=== PATIENT | female | born 1950 | race Caucasian/White ===

== ENCOUNTER 2018-10-20 05:47 | Day surgery (SDC) | payer MEDICARE ==
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
[2018-10-19 15:58] VITALS: BMI 40.0
[2018-10-20] MEDS ORDERED: Ketorolac Tromethamine 30 MG/ML VIAL ONE (06:25)
[2018-10-20] MEDS ORDERED: CEFAZOLIN 2 GM/50 ML BAG ONE (06:25)
[2018-10-20] MEDS ORDERED: Fentanyl 100 MCG/2 ML VIAL ONE ×4 (06:34→10:34)
[2018-10-20 06:46] LABS: #Eosinphils 0.2 thou/uL (0.0-0.7); #Lymphocytes 1.1 thou/uL (1.20-3.40); #Monocytes 0.6 thou/uL (0.11-0.59); #Neutrophils 2.5 thou/uL (1.40-6.50); %Basophils 1.1 % (0.0-1.0); %Eosinophils 5.1 % (0.0-10.0); %Lymphocytes 25.9 % (21.0-51.0); %Monocytes 12.3 % (0.0-10.0); %Neutrophils 55.7 % (42.0-75.0); Hemoglobin 12.5 g/dL (12.0-16.0); Mean Corpuscular HGB CONC 31.7 g/dL (32.0-36.0); Mean Corpuscular Hemoglobin 25.9 pg (27.0-31.0); Mean Corpuscular Volume 81.7 fL (78.0-98.0); Mean Platelet Volume 7.8 fL (7.4-10.4); Platelet Count 266 thou/uL (130-400); RBC Distribution Width 15.6 % (11.5-14.5); Red Blood Cell (RBC) Count 4.83 mill/uL (4.20-5.40); White Blood Cell (WBC) Count 4.4 thou/uL (4.8-10.8)
[2018-10-20 06:50] LABS: INR-International Normal Ratio 1.2; Prothrombin Time 15.3 SEC (12.0-14.7)
[2018-10-20] MEDS ORDERED: Bupivacaine/Epinephrine 0.25% 30 ML VIAL ONE (06:56)
[2018-10-20 06:58] LABS: Anion Gap 12 mmol/L (10-20); BUN (Urea Nitrogen) 12 mg/dL (9.8-20.1); Calc. Creatinine Clearance 117 mL/min (70-130); Calcium 10.5 mg/dL (7.8-10.44); Carbon Dioxide 23 mmol/L (23-31); Chloride 109 mmol/L (98-107); Estimated GFR-MDRD 81; Glucose 109 mg/dL (80-115); Potassium 3.6 mmol/L (3.5-5.1); Sodium 140 mmol/L (136-145)
--- NOTE | 2018-10-20 10:51 | HP ---
ADDENDUM: Dictation #[id number]. Dictated today, but original dictation number coded 10/10/2018. I personally discussed with Dr. Szymanski on the patient's cardiac status. The patient in August 2016 had a normal cardiac catheterization, left ventricular ejection fraction of 55% to 70%. The patient had an echocardiogram on August [address] Szymanski's office, that was normal. The patient is cleared for surgery without further cardiac evaluation. The patient is listed to be on Coumadin, but she is not. This has been stopped. Job ID: [id number]
[2018-10-20] MEDS ORDERED: HYDROcodone/Acetaminophen 5/325 mg Tablet ONE (11:51)
[2018-10-20] MEDS ORDERED: Lidocaine 1% PF 5 ML VIAL ONE (12:59)
[2018-10-20] MEDS ORDERED: Ondansetron PF 4 MG/2 ML Vial ONE (12:59)
[2018-10-20] MEDS ORDERED: Glycopyrrolate 0.2 MG/ML 5 ML SYRINGE ONE (12:59)
[2018-10-20] MEDS ORDERED: PROPOFOL 200 MG/20 ML VIAL ONE (12:59)
[2018-10-20] MEDS ORDERED: Dexamethasone 20 MG/5 ML VIAL ONE (12:59)
[2018-10-20] MEDS ORDERED: ePHEDrine/0.9% NaCl/PF SYRINGE 50 mg/10 ml ONE (12:59)
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
--- NOTE | 2018-10-20 19:03 | EKG ---
Test Reason : PREOP Blood Pressure : / mmHG Vent. Rate : 065 BPM Atrial Rate : 065 BPM P-R Int : 160 ms QRS Dur : 088 ms QT Int : 432 ms P-R-T Axes : 056 012 031 degrees QTc Int : 449 ms Normal sinus rhythm Normal ECG No previous ECGs available Confirmed by Thomas PARK ([id number]) on 10/20/2018 7:03:08 PM Referred By: ALLY Confirmed By:Thomas PARK
== END 2018-10-20 13:45 | disposition home or self-care (01) ==
LOC: SDC 05:47
PROVIDERS: ATTEND Specialist
PROC: 0WUF4JZ Supplement Abdominal Wall with Synthetic Substitute, Percutaneous Endoscopic Approach (ICD-10-PCS; principal; 2018-10-20)
DX: K43.2 Incisional hernia without obstruction or gangrene (principal); I10 Essential (primary) hypertension; E78.00 Pure hypercholesterolemia, unspecified; F32.9 Major depressive disorder, single episode, unspecified; Z86.718 Personal history of other venous thrombosis and embolism; Z79.01 Long term (current) use of anticoagulants; Z79.899 Other long term (current) drug therapy; Z90.710 Acquired absence of both cervix and uterus; Z98.890 Other specified postprocedural states
CPT/HCPCS: 49654; 80048; 85025; 85610; 93005; 96374; C1781; 36415; 93010; J0131; J1100; J1885; J2001; J2405; J2704; J3010

== ENCOUNTER 2018-10-27 09:17 | Emergency (ER) | payer MEDICARE ==
[2018-10-27 10:09] LABS: #Eosinphils 0.2 thou/uL (0.0-0.7); #Lymphocytes 1.2 thou/uL (1.20-3.40); #Monocytes 0.7 thou/uL (0.11-0.59); #Neutrophils 5.6 thou/uL (1.40-6.50); %Eosinophils 3.1 % (0.0-10.0); %Lymphocytes 15.3 % (21.0-51.0); %Monocytes 9.4 % (0.0-10.0); %Neutrophils 72.2 % (42.0-75.0); Hemoglobin 12.8 g/dL (12.0-16.0); Mean Corpuscular HGB CONC 32.5 g/dL (32.0-36.0); Mean Platelet Volume 7.8 fL (7.4-10.4); Platelet Count 258 thou/uL (130-400); RBC Distribution Width 15.9 % (11.5-14.5); Red Blood Cell (RBC) Count 4.76 mill/uL (4.20-5.40); White Blood Cell (WBC) Count 7.8 thou/uL (4.8-10.8)
[2018-10-27 10:30] LABS: ALT (SGPT) 14 U/L (8-55); AST (SGOT) 13 U/L (5-34); Albumin 4.1 g/dL (3.4-4.8); Alkaline Phosphatase 85 U/L (40-150); Anion Gap 9 mmol/L (10-20); BUN (Urea Nitrogen) 13 mg/dL (9.8-20.1); Bilirubin, Total 0.9 mg/dL (0.2-1.2); Calc. Creatinine Clearance 0 mL/min (70-130); Calcium 10.7 mg/dL (7.8-10.44); Carbon Dioxide 25 mmol/L (23-31); Chloride 108 mmol/L (98-107); Estimated GFR-MDRD 78; Glucose 133 mg/dL (80-115); INR-International Normal Ratio 1.6; PTT 46.1 SEC (22.9-36.1); Potassium 3.3 mmol/L (3.5-5.1); Protein, Total 7.1 g/dL (6.0-8.3); Sodium 139 mmol/L (136-145)
--- NOTE | 2018-10-27 11:21 | ULT ---
ULTRASOUND WITH DOPPLER DUPLEX VENOUS LOWER EXTREMITY LEFT: Date: 10/27/18 HISTORY: 67-year-old female with left lower extremity pain. TECHNIQUE: Color flow Doppler, spectral waveform analysis of pulsed Doppler, and king-scale imaging with barbara les and augmentation, were used to evaluate the left common femoral, femoral, popliteal, posterior t ibial, and superficial femoral, veins; and the proximal portions of the profunda femoral and greater saphenous, veins. FINDINGS: There is normal compressibility, demonstration of blood flow by color Doppler and pulsed Doppler, and response to augmentation, in all interrogated veins. The entire greater saphenous vein, from the saphenofemoral junction, through the thigh, is expanded, noncompressible, and has no blood flow. The left lesser saphenous vein is also expanded with clot at the ankle, has diminished blood flow, and is noncompressible. In the superficial soft tissues of the left leg inferior to the knee, there are very tortuous, dilated, clot-filled varicosities which have some blood flow. IMPRESSION: 1. No deep vein thrombosis in the left lower extremity. 2. Positive for occlusive superficial venous thrombosis of the entire left greater saphenous vein an d left lesser saphenous vein. 3. Positive for superficial thrombophlebitis of varicosities of left leg. ivett[] POS: PAULINE
== END 2018-10-27 11:43 | disposition home or self-care (01) ==
LOC: ERS 09:17
DX: I80.02 Phlebitis and thrombophlebitis of superficial vessels of left lower extremity (principal); I10 Essential (primary) hypertension; Z79.899 Other long term (current) drug therapy
CPT/HCPCS: 36415; 80053; 85025; 85610; 85730

== ENCOUNTER 2019-02-15 08:25 | Outpatient (CLI) | payer MEDICARE ==
--- NOTE | 2019-02-23 09:21 | MMO ---
Bilateral MAMMO Bilat Screen [facility]. CLINICAL HISTORY: Patient is 68 years old and is seen for screening. VIEWS: The views performed were: bilateral craniocaudal with tomosynthesis and bilateral mediolateral oblique with tomosynthesis. FILMS COMPARED: The present examination has been compared to prior imaging studies performed at [facility] on 01/21/2015 and 02/23/2016, and at [facility] on 08/25/2005. MAMMOGRAM FINDINGS: There are scattered fibroglandular densities. Incomplete visualization of axillary tail regions on MLO views. Repeat MLO views recommended. IMPRESSION: FINDINGS IN BOTH BREASTS REQUIRE ADDITIONAL EVALUATION. TECHNICAL CALLBACK, PATIENT SHOULD RETURN FOR REPEAT IMAGES DESCRIBED ABOVE. PATIENT SHOULD NOT BE CHARGED FOR ADDITIONAL IMAGES. THE RESULTS OF THIS EXAM WERE SENT TO THE PATIENT. ACR BI-RADS Category 0 - Incomplete: Need additional imaging evaluation. [facility] will notify the patient of the need for additional imaging services. MAMMOGRAPHY NOTE: 1. A negative mammogram report should not delay a biopsy if a dominant of clinically suspicious mass is present. 2. Approximately 10% to 15% of breast cancers are not detected by mammography. 3. Adenosis and dense breasts may obscure an underlying neoplasm.
== END 2019-02-15 08:26 | disposition home or self-care (01) ==
LOC: BICMAMMO 08:25
PROVIDERS: ATTEND Physician Assistant
DX: Z12.31 Encounter for screening mammogram for malignant neoplasm of breast (principal)
CPT/HCPCS: 77063; 77067

== ENCOUNTER 2019-07-31 09:47 | Outpatient (CLI) | payer MEDICARE ==
--- NOTE | 2019-07-31 11:57 | RAD ---
2 VIEWS SKULL: Date: 07/31/19 INDICATION: MRI safety. Patient states she has right ear implant. FINDINGS/IMPRESSION: No radiopaque implant identified in either ear. No osseous or soft tissue abnormality apparent. POS: OFF
--- NOTE | 2019-07-31 12:22 | MRI ---
MRI BRAIN WITH AND WITHOUT CONTRAST: 07/31/2019 HISTORY: Left-sided sensorineural hearing loss. COMPARISON: None. TECHNIQUE: Multiplanar multisequence MR imaging of the brain obtained with and without contrast using internal a uditory canal protocol. FINDINGS: The diffusion weighted imaging demonstrates no evidence for acute infarction. The axial FLAIR imaging demonstrates multiple subcentimeter foci of scattered increased signal intens ity within the periventricular, deep and subcortical white matter, evidence of small vessel disease. Thin section T2 weighted imaging through the skull base demonstrate no abnormality at the level of th e cerebellopontine angle on either side. There is normal T2 signal intensity in the region of the internal auditory canal, cochlea, vestibule and semicircular canals bilaterally. The imaged paranasal sinuses and mastoid air cells demonstrate normal signal intensity. Arterial flow voids at the axial level of the skull base appear grossly unremarkable on the T2-weight ed imaging. Pre-contrast T1 weighted imaging through the skull base demonstrates no acute findings. There is a mass within the sella, measuring approximately 9-10 mm in craniocaudal dimension. It demo nstrates heterogeneous increased signal intensity on pre-contrast T1 weighted sequence and is heterogeneous on T2 with areas of internal T2 hypointensity. The post contrast imaging demonstrates no abnormal enhancement within the brain parenchyma. Thin section post contrast imaging through the skull base demonstrates no abnormal enhancement in the region of the internal auditory canal, cochlea, vestibule or semicircular canals on either side. IMPRESSION: 1. No focal abnormality noted on this examination to explain left-sided sensorineural hearing loss. 2. Sellar mass with pre-contrast T1 hyperintensity, suggesting proteinaceous material and/or hemorrh age. Recommend dedicated MRI using a pituitary mass protocol. Transcribed Date/Time: 07/31/2019 12:30 PM
== END 2019-07-31 09:48 | disposition home or self-care (01) ==
LOC: BICMRI 09:47
PROVIDERS: ATTEND Student in an Organized Health Care Education/Training Program
DX: H90.42 Sensorineural hearing loss, unilateral, left ear, with unrestricted hearing on the contralateral side (principal); G93.89 Other specified disorders of brain; R90.89 Other abnormal findings on diagnostic imaging of central nervous system
CPT/HCPCS: 70250; 70553; 82565

== ENCOUNTER 2019-08-13 18:32 | Emergency (ER) | payer MEDICARE ==
--- NOTE | 2019-08-13 18:55 | RAD ---
Radiograph left knee 4 views: DATE: 08/13/2019 HISTORY: 68-year-old female with acute traumatic left knee pain. FINDINGS: Small to moderate-sized suprapatellar joint effusion. No acute fracture identified. No dislocation. M oderate to severe DJD at medial compartment. Mild to moderate DJD at patellofemoral compartment. Minimal DJD at lateral compartment. Chondrocalcinosis at medial and lateral compartments. IMPRESSION: 1. Osteoarthrosis, most severe at the medial compartment. 2. Chondrocalcinosis suggestive of CPPD. 3. Joint effusion. 4. No acute fracture identified.
[2019-08-13] MEDS ORDERED: traMADol HCl 50 MG TAB ONE (19:45)
== END 2019-08-13 19:54 | disposition home or self-care (01) ==
LOC: ERS 18:32
DX: S80.02XA Contusion of left knee, initial encounter (principal); S50.312A Abrasion of left elbow, initial encounter; I10 Essential (primary) hypertension; Z79.82 Long term (current) use of aspirin; Z79.899 Other long term (current) drug therapy; W01.0XXA Fall on same level from slipping, tripping and stumbling without subsequent striking against object, initial encounter

== ENCOUNTER 2019-08-21 07:45 | Outpatient (CLI) | payer MEDICARE ==
[2019-08-21] MEDS ORDERED: Gadobenate Dimeglumine 529 MG/1 ML (20ML VIAL) ONE (10:09)
--- NOTE | 2019-08-21 11:26 | MRI ---
MRI BRAIN AND SELLA WITH AND WITHOUT CONTRAST: 08/21/2019 HISTORY: A 68-year-old female with an intrasellar mass found on IAC protocol brain MRI from 07/31/2019. FINDINGS: There is an intrasellar mass with intrinsic T1 hyperintensity, measuring approximately 10 x 9 x 10 mm , occupying the majority of the volume of the sella turcica. All of the subsequent post contrast imag es are degraded by significant patient motion. Because of the intrinsic T1 hyperintensity, it is diff icult to determine whether or not there is any enhancement associated with this. The majority of the volume of the mass is heterogeneously T2 hypointense, surrounding by a thin rim of T2 hyperintensity. There is minimal suprasellar protrusion. No contact with the optic chiasm. No invasion of the cavern ous sinuses. There are mild to moderate chronic ischemic white matter changes of the bilateral cerebr al hemispheres. No mass effect or midline shift. There is an old lacunar infarction involving the rig ht caudate head and a small adjacent portion of the anterior limb of the right internal capsule and t he right basal ganglia, with associated minimal dilation of the frontal horn of the right lateral jay tricle. IMPRESSION: 1. An approximately 1 cm T1-hyperintense and T2-hypointense mass filling the sella turcica. The diffe rential symptoms is Rathke's cleft cyst with proteinaceous contents versus small craniopharyngioma ve rsus small hemorrhagic pituitary macroadenoma. 2. Recommend thin slice non-contrast CT brain/sinuses with attention to the sella turcica, to evaluat e for the presence of calcifications, which would point the diagnosis to craniopharyngioma. 3. Also recommend serial follow-up sella protocol MRI's of the brain with and without contrast, begin lesa in six months. 4. Old lacunar infarction of the right corpus striatum. POS: CET
== END 2019-08-21 07:46 | disposition home or self-care (01) ==
LOC: BICMRI 07:45
PROVIDERS: ATTEND Student in an Organized Health Care Education/Training Program
DX: D35.2 Benign neoplasm of pituitary gland (principal); I25.2 Old myocardial infarction; E23.7 Disorder of pituitary gland, unspecified
CPT/HCPCS: 70553; A9577

== ENCOUNTER 2019-10-07 09:02 | Emergency (ER) | payer MEDICARE ==
[2019-10-07] MEDS ORDERED: Meclizine HCl 25 MG TAB ONE (10:04)
[2019-10-07] MEDS ORDERED: Acetaminophen 500 MG TAB ONE (10:04)
[2019-10-07] MEDS ORDERED: Ondansetron PF 4 MG/2 ML Vial ONE (10:04)
--- NOTE | 2019-10-07 10:20 | CT ---
Head CT without contrast 10/07/2019: Comparison: None HISTORY: Dizziness, fever, tremors TECHNIQUE: Axial CT imaging at 5 mm intervals from vertex through skull base without contrast FINDINGS: The visualized paranasal sinuses/mastoid air cells demonstrate no acute findings. No displa migel calvarial fracture. No intracranial hemorrhage, midline shift, mass effect, or ventricular enlargement. Foci of prior lacunar infarction noted in the periventricular white matter adjacent to t he frontal horn of the right lateral ventricle and in the region of the right caudate head. IMPRESSION: Chronic findings as detailed above. No intracranial hemorrhage.
[2019-10-07 10:37] LABS: INR-International Normal Ratio 1.9; PTT 42.7 SEC (22.9-36.1); Prothrombin Time 21.7 SEC (12.0-14.7)
[2019-10-07 10:37] LABS: Bacteria/HPF 4+ HPF (None Seen); Bilirubin Negative (Negative); Blood, Urine 1+ (Negative); Clarity Extra Turbid (Clear); Glucose, Urine (Dipstick) Normal (Negative); Leukocyte 500 Leu/uL (Negative); Nitrite Negative (Negative); Protein, Urine (Dipstick) 100 mg/dL (Neg-Trace); Urobilinogen 3 mg/dL (Less than 2); WBC/HPF Greater than 50 HPF (0-3)
--- NOTE | 2019-10-07 10:38 | RAD ---
EXAM: Portable chest PROVIDED CLINICAL HISTORY: Fever and dizziness COMPARISON: None FINDINGS: Cardiac and mediastinal silhouette is within normal limits. No focal consolidation, pleural fluid or pneumothorax evident. Vascular calcification is noted involving the aortic arch. IMPRESSION: No evidence for an acute cardiopulmonary process.
[2019-10-07 10:53] LABS: ALT (SGPT) 21 U/L (8-55); AST (SGOT) 25 U/L (5-34); Alkaline Phosphatase 90 U/L (40-110); Anion Gap 12 mmol/L (10-20); BUN (Urea Nitrogen) 13 mg/dL (9.8-20.1); Bilirubin, Total 1.4 mg/dL (0.2-1.2); Calc. Creatinine Clearance 0 mL/min (70-130); Calcium 10.5 mg/dL (7.8-10.44); Carbon Dioxide 23 mmol/L (23-31); Chloride 105 mmol/L (98-107); Estimated GFR-MDRD 69; Glucose 128 mg/dL (80-115); Lipase 5 U/L (8-78); Potassium 3.4 mmol/L (3.5-5.1); Sodium 137 mmol/L (136-145)
[2019-10-07 10:58] LABS: #Basophils 0.2 thou/uL (0.0-0.2); #Lymphocytes 0.4 thou/uL (1.20-3.40); #Monocytes 1.3 thou/uL (0.11-0.59); #Neutrophils 7.7 thou/uL (1.40-6.50); %Basophils 1.7 % (0.0-1.0); %Eosinophils 0.1 % (0.0-10.0); %Lymphocytes 4.1 % (21.0-51.0); %Monocytes 13.8 % (0.0-10.0); %Neutrophils 80.4 % (42.0-75.0); Hemoglobin 12.3 g/dL (12.0-16.0); MDiff Complete? YES; Mean Corpuscular Hemoglobin 26.9 pg (27.0-31.0); Mean Corpuscular Volume 81.5 fL (78.0-98.0); Mean Platelet Volume 8.7 fL (7.4-10.4); Platelet Count 177 thou/uL (130-400); Platelet Morphology Comment Appears Adequate; RBC Distribution Width 15.5 % (11.5-14.5); Red Blood Cell (RBC) Count 4.58 mill/uL (4.20-5.40); White Blood Cell (WBC) Count 9.6 thou/uL (4.8-10.8)
[2019-10-07] MEDS ORDERED: cefTRIAXone\\ROCEPHIN 2 GM VIAL ONE (11:35)
== END 2019-10-07 13:02 | disposition home or self-care (01) ==
LOC: ERS 09:02
DX: N10 Acute pyelonephritis (principal); R42 Dizziness and giddiness; I10 Essential (primary) hypertension; Z79.899 Other long term (current) drug therapy; Z79.01 Long term (current) use of anticoagulants; R11.2 Nausea with vomiting, unspecified
CPT/HCPCS: 36415; 70450; 71045; 80053; 81003; 81015; 83605; 83690; 83735; 84146; 84443; 84484; 85025; 85610; 85730; 87040; 87149; 87804; 93005; 94760; 96361; 96365; 96375; J0696; J2405; J8597

== ENCOUNTER 2019-10-25 09:36 | Outpatient (CLI) | payer MEDICARE ==
--- NOTE | 2019-10-25 11:28 | CT ---
INDICATION: Vertigo. Confusion. COMPARISON: Head CT 10/07/2019 FINDINGS: CTA OF THE HEAD WITH AND WITHOUT CONTRAST: NONCONTRAST CT OF BRAIN: Hemorrhage: None [place]/Infarction: No acute infarct. Remote insult involving the right lentiform nucleus and caudat e nucleus is redemonstrated Midline Shift: None. Hydrocephalus: None. Skull and Extracranial Soft tissues: Normal. POSTCONTRAST HEAD CT: No pathologic enhancement the brain parenchyma. CTA OF THE BRAIN: Right ICA: Appropriate enhancement and luminal diameter. Right MCA: Appropriate enhancement and luminal diameter. Right DARCY: Appropriate enhancement and luminal diameter ACOM: Patent. Left ICA: Appropriate enhancement and luminal diameter Left MCA: Appropriate enhancement and luminal diameter Left DARCY: Appropriate enhancement and luminal diameter PCOMs: Patent Vertebral arteries: Dominant right vertebral artery. Left vertebral artery appears to have PICA term ination. Basilar Artery: Basilar artery is patent. Basilar artery is solely supplied by the right vertebral a rtery public health service officer: Right SURVEILLANCE SYSTEMS ENGINEER has a origin and is patent. The left P1 segment is patent. Incidentals: None. IMPRESSION: 1. No hemodynamically significant stenosis, occlusion or aneurysmal formation.
== END 2019-10-25 09:37 | disposition home or self-care (01) ==
LOC: TBSIIMAG 09:36
PROVIDERS: ATTEND Neurological Surgery
DX: R42 Dizziness and giddiness (principal)
CPT/HCPCS: 70496

== ENCOUNTER 2020-08-05 13:19 | Outpatient (CLI) | payer MEDICARE ==
[~2020-08-05 13:19] MED LIST: Magnevist 469MG/ML 20 ML VIAL ONE
--- NOTE | 2020-08-05 15:03 | MRI ---
Exam: Brain MRI with and without contrast HISTORY: Previous abnormal finding in the sella. Possible Rathke's cleft cyst versus craniopharyngiom a versus pituitary adenoma with hemorrhage. COMPARISON: 08/31/2019. FINDINGS: Hemorrhage: No parenchymal hemorrhage or extra-axial hematoma. Calvarium: Appropriate T1 marrow signal intensity Midline brain parenchyma: Unremarkable Cerebrum:No parenchymal mass, mass effect or midline shift. Age-appropriate atrophy. Cortical king-wh ite white matter differentiation is preserved. T2 and FLAIR white matter hyperintensities due to chronic small vessel ischemic change. Ventricles: No evidence of hydrocephalus. Sinuses and mastoid air cells: Adequate aeration Diffusion: Central arterial flow is maintained. Absent restricted diffusion. Postcontrast images: No pathologic enhancement of the brain parenchyma. Pituitary MRI: There is intrinsic T1 hyperintensity involving a sellar mass. Currently, mass measures 0.9 x 1.1 cm x 1.1 cm. T2-weighted images demonstrate central hypointensity suggesting hemosiderin from previous hemorrhage. Postcontrast images do not demonstrate any significant enhancement. There i s anterior displacement of the pituitary stalk. No significant mass effect upon the optic chiasm or prechiasmatic optic nerve. No significant extension into either cavernous sinus/Meckel's cave. IMPRESSION: Redemonstration of a mass occupying the majority the sella. Mass has intrinsic T1 hyperintensity with out obvious enhancement on the postcontrast images. There is anterior displacement of the pituitary stalk which is still midline. Differential considerations include a complex Rathke's cleft cyst, pars intermedia cyst or possibly a cystic macroadenoma.
== END 2020-08-05 13:20 | disposition home or self-care (01) ==
LOC: BICMRI 13:19
PROVIDERS: ATTEND Physician Assistant
DX: R93.89 Abnormal findings on diagnostic imaging of other specified body structures (principal); E23.6 Other disorders of pituitary gland
CPT/HCPCS: 70553; 82565; A9579

== ENCOUNTER 2020-09-04 13:40 | Outpatient (CLI) | payer MEDICARE ==
--- NOTE | 2020-09-04 14:21 | MMO ---
Bilateral MAMMO Bilat Screen [facility]. CLINICAL HISTORY: Patient is 69 years old and is seen for screening. VIEWS: The views performed were: bilateral craniocaudal with tomosynthesis and bilateral mediolateral oblique with tomosynthesis. FILMS COMPARED: The present examination has been compared to prior imaging studies performed at [facility] on 01/21/2015 and 02/23/2016, at [facility] on 02/15/2019, and at [facility] on 08/25/2005. This study has been interpreted with the assistance of computer-aided detection. MAMMOGRAM FINDINGS: There are scattered fibroglandular densities. There are no suspicious masses, suspicious calcifications, or new areas of architectural distortion. IMPRESSION: THERE IS NO MAMMOGRAPHIC EVIDENCE OF MALIGNANCY. A ROUTINE FOLLOW-UP MAMMOGRAM IN 1 YEAR IS RECOMMENDED. THE RESULTS OF THIS EXAM WERE SENT TO THE PATIENT. ACR BI-RADS Category 1 - Negative MAMMOGRAPHY NOTE: 1. A negative mammogram report should not delay a biopsy if a dominant of clinically suspicious mass is present. 2. Approximately 10% to 15% of breast cancers are not detected by mammography. 3. Adenosis and dense breasts may obscure an underlying neoplasm. Reported by: CARRIE CARRASCO MD Electonically Signed: [id number]
== END 2020-09-04 13:41 | disposition home or self-care (01) ==
LOC: BICMAMMO 13:40
PROVIDERS: ATTEND Physician Assistant
DX: Z12.31 Encounter for screening mammogram for malignant neoplasm of breast (principal)
CPT/HCPCS: 77063; 77067

== ENCOUNTER 2020-09-12 12:31 | Observation (INO) | payer MEDICARE ==
[2020-09-12 12:53] LABS: #Eosinphils 0.2 thou/uL (0.0-0.7); #Lymphocytes 1.2 thou/uL (1.20-3.40); #Monocytes 0.9 thou/uL (0.11-0.59); #Neutrophils 3.4 thou/uL (1.40-6.50); %Basophils 0.5 % (0.0-1.0); %Lymphocytes 21.1 % (21.0-51.0); %Monocytes 14.9 % (0.0-10.0); %Neutrophils 59.5 % (42.0-75.0); Hemoglobin 13.4 g/dL (12.0-16.0); Mean Corpuscular HGB CONC 31.6 g/dL (32.0-36.0); Mean Corpuscular Hemoglobin 25.3 pg (27.0-31.0); Mean Corpuscular Volume 80.2 fL (78.0-98.0); Mean Platelet Volume 7.9 fL (7.4-10.4); Platelet Count 279 thou/uL (130-400); RBC Distribution Width 15.9 % (11.5-14.5); Red Blood Cell (RBC) Count 5.27 mill/uL (4.20-5.40); White Blood Cell (WBC) Count 5.8 thou/uL (4.8-10.8)
[2020-09-12 12:55] LABS: Prothrombin Time 26.8 sec (12.0-14.7)
[2020-09-12 12:56] LABS: PTT 56.4 sec (22.9-36.1)
[2020-09-12 12:57] LABS: INR-International Normal Ratio 2.4
[2020-09-12 13:22] LABS: ALT (SGPT) 16 U/L (8-55); AST (SGOT) 19 U/L (5-34); Albumin 4.2 g/dL (3.4-4.8); Alkaline Phosphatase 75 U/L (40-110); Anion Gap 13 mmol/L (10-20); BUN (Urea Nitrogen) 14 mg/dL (9.8-20.1); Bilirubin, Total 0.5 mg/dL (0.2-1.2); CK (CPK) 52 U/L (29-168); Calc. Creatinine Clearance 0 mL/min (70-130); Calcium 10.5 mg/dL (7.8-10.44); Carbon Dioxide 26 mmol/L (23-31); Chloride 106 mmol/L (98-107); Estimated GFR-MDRD 72; Globulin 2.8 g/dL (2.4-3.5); Glucose 102 mg/dL (80-115); Potassium 3.7 mmol/L (3.5-5.1); Sodium 141 mmol/L (136-145)
--- NOTE | 2020-09-12 13:23 | CT ---
CTA Angio Head W WO Con History: Stroke. Left-sided facial droop Comparison: CTA head and neck October 2019 Findings: CT angiogram of the head and neck performed after the intravenous administration of contras t. 3-D rendering provided. Lung apices are clear. Moderate degenerative changes lower cervical spine. No acute fracture. Mandible is intact. Normal location of the tip joints. The vertebral arteries are patent. Right vertebral artery is dominant. Right common carotid artery is patent. Slight internal carotid artery is patent. No hemodynamically s ignificant stenosis per NASCET criteria. Left common carotid artery is patent. The left internal carotid artery is patent. No hemodynamically significant stenosis per NASCET criteria. No oropharyngeal mass. [place] is patent without stenosis, thrombosis nor aneurysm formation. Impression: 1. Intact [place] without stenosis, thrombosis or aneurysm formation. 2. No hemodynamically significant stenosis internal carotid arteries per NASCET criteria. Transcribed Date/Time: 09/12/2020 2:42 PM
[2020-09-12] MEDS ORDERED: Acetaminophen 500 MG TAB ONE (14:25)
--- NOTE | 2020-09-12 14:38 | CT ---
CT BRAIN WITHOUT CONTRAST: 09/12/20 HISTORY: Level I stroke alert. Left sided facial and arm tingling and slurred speech. COMPARISON: 10/07/19. Old lacunar infarctions in the periventricular white matter adjacent to the frontal horn of the right lateral ventricle and in the region of the right caudate head are again seen. The ventricular size i s stable and the basilar cisterns patent. No evidence of acute infarct, hemorrhage, midline shift or abnormal extra-axial fluid collections are seen. The bony calvarium is intact. The visualized paranasal sinuses are well aerated. IMPRESSION: No CT evidence of acute intracranial process. Discussed over the telephone with ER physician, Dr. Carmelo Tovar at 12:48 p.m.
[2020-09-12] MEDS ORDERED: Iopamidol-370 76% 500 ML 1 ML ONE (15:08)
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
[2020-09-12] MEDS ORDERED: hydrALAZINE 20 MG/ML VIAL SLOW IVP PRN (16:42)
[2020-09-12 17:41] VITALS: BMI 38.5
[2020-09-12 17:58] LABS: Hemoglobin A1c 5.3 % (4.0-6.0)
[2020-09-12] MEDS ORDERED: Warfarin Sodium 7.5 MG TAB PO SCH (19:15)
[2020-09-12] MEDS: Atorvastatin Calcium 40 MG TAB PO SCH (21:08)
[2020-09-13 06:07] LABS: #Eosinphils 0.3 thou/uL (0.0-0.7); #Lymphocytes 1.4 thou/uL (1.20-3.40); #Monocytes 0.6 thou/uL (0.11-0.59); #Neutrophils 2.7 thou/uL (1.40-6.50); %Basophils 0.7 % (0.0-1.0); %Eosinophils 6.1 % (0.0-10.0); %Lymphocytes 27.5 % (21.0-51.0); %Monocytes 12.5 % (0.0-10.0); %Neutrophils 53.2 % (42.0-75.0); Hemoglobin 12.5 g/dL (12.0-16.0); Mean Corpuscular HGB CONC 32.1 g/dL (32.0-36.0); Mean Corpuscular Hemoglobin 25.7 pg (27.0-31.0); Mean Corpuscular Volume 80.2 fL (78.0-98.0); Mean Platelet Volume 8.4 fL (7.4-10.4); Platelet Count 260 thou/uL (130-400); RBC Distribution Width 15.8 % (11.5-14.5); Red Blood Cell (RBC) Count 4.87 mill/uL (4.20-5.40); White Blood Cell (WBC) Count 5.1 thou/uL (4.8-10.8)
[2020-09-13 06:10] LABS: INR-International Normal Ratio 2.5; Prothrombin Time 27.3 sec (12.0-14.7)
[2020-09-13 06:29] LABS: Anion Gap 11 mmol/L (10-20); BUN (Urea Nitrogen) 15 mg/dL (9.8-20.1); Calc. Creatinine Clearance 110 mL/min (70-130); Calcium 10.1 mg/dL (7.8-10.44); Carbon Dioxide 26 mmol/L (23-31); Cardiac Risk 3.5 (Less than 4.5); Chloride 109 mmol/L (98-107); Cholesterol 128 mg/dl (< 200 Desired); Estimated GFR-MDRD 80; Glucose 105 mg/dL (80-115); HDL Cholesterol 37 mg/dL (>60 Neg Risk); LDL Cholesterol, Calculated 65 mg/dL; Potassium 3.8 mmol/L (3.5-5.1); Sodium 142 mmol/L (136-145); Triglycerides 129 mg/dL (Less than 150)
[2020-09-13] MEDS: Levothyroxine Sodium 75 MCG TAB PO SCH (06:50)
[2020-09-13] MEDS: PARoxetine CR 12.5 MG TAB PO SCH (10:10)
--- NOTE | 2020-09-13 13:49 | PDOC.HOSPP ---
- Subjective Encounter Date: 09/13/20 Encounter Time: 07:20 Subjective: Seen for follow-up regarding facial numbness. She reports that she feels fine now. - Objective Vital Signs & Weight: Vital Signs (12 hours) Temp Pulse Resp BP Pulse Ox 09/13/20 11:20 98.1 F 63 18 143/63 H 95 09/13/20 07:14 98.2 F 65 20 135/67 95 09/13/20 04:27 98.2 F 70 16 138/59 L 93 L Weight Weight 210 lb 12.8 oz I&O: 09/12/20 09/13/20 09/14/20 06:59 06:59 05:59 Intake Total 240 Output Total 450 650 Balance -210 -650 Result Diagrams: 09/13/20 04:47 09/13/20 04:47 Additional Labs: Labs and MAR reviewed by me EKG Reviewed by me: Yes (Telemetry: NSR) Hospitalist ROS - Review of Systems Cardiovascular: denies: chest pain, palpitations, orthopnea, paroxysmal noc. dyspnea, edema, light headedness Neurological: reports: numbness. denies: weakness, incoordination, change in speech, confusion, seizures - Medication Medications: Active Medications Generic Name Dose Route Start Last Admin Trade Name Freq PRN Reason Stop Dose Admin Atorvastatin Calcium 80 mg 09/12/20 21:00 09/12/20 21:08 Atorvastatin Calcium 40 Mg Tab PO 80 mg HS COLTON Administration Levothyroxine Sodium 75 mcg 09/13/20 06:00 09/13/20 06:50 Levothyroxine Sodium 75 Mcg Tab PO 75 mcg 0600 COLTON Administration Paroxetine HCl 12.5 mg 09/13/20 09:00 09/13/20 10:10 Paroxetine Cr 12.5 Mg Tab PO 12.5 mg DAILY COLTON Administration - Exam General - other findings: Obese Eye: anicteric sclera ENT: no oropharyngeal lesions Neck: supple Heart: RRR Respiratory: CTAB, no ronchi Gastrointestinal: soft, non-tender Skin: no rashes Psychiatric: normal affect, normal behavior Hosp A/P - Plan -Assessment/plan Left facial numbness Improved. Stroke work-up in progress. Recurrent DVTs Patient is on warfarin, INR is therapeutic. Sellar mass For outpatient follow-up. Hypertension Stable. Hypothyroidism Continue home levothyroxine. Hyperlipidemia Continue atorvastatin 80 mg. Anxiety/depression Mild, stable. Mnire's disease Patient to follow-up with ENT as outpatient.
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
--- NOTE | 2020-09-13 14:41 | PDOC.EEG ---
Neurology EEG Report - Report Report: EEG was performed using 24 channel [employer] video digital EEG machine with 24 disc electrodes. This was an extended 2-hour 5 minutes of inpatient video EEG recording. Digital analysis of the EEG was done for Kashif and seizure detection which revealed no abnormalities. Background: The posterior background rhythm is 10 to 12 Hz the background rhythm attenuates with eye opening and enhances with eye closure. Photic stimulation: Bioccipital symmetric driving response is observed. Hyperventilation: Not performed Sleep: Drowsiness is observed EEG diagnosis: Normal awake and drowsy EEG.
[2020-09-13] MEDS ORDERED: Warfarin Sodium 7.5 MG TAB PO SCH (17:00)
--- NOTE | 2020-09-13 19:13 | MRI ---
MRI OF BRAIN 09/13/20 PROVIDED CLINICAL HISTORY: Slurred speech. COMPARISON: 08/05/20 brain MRI. FINDINGS: The ventricular system is normal in size and morphology. There is no evidence for intracranial hemorr rm. There is no evidence for restricted diffusion to suggest recent infarction. Chronic microvascul ar ischemic changes are redemonstrated involving the cerebral white matter. Appropriate flow voids ar e seen within the major intracranial vessels. Redemonstration of a sellar mass, stable as compared wi th prior. The extracranial soft tissues and calvarial marrow signal appear unremarkable. IMPRESSION: 1. No evidence for restricted diffusion to suggest recent infarction. 2. Stable sellar mass. POS: BRITTANY
[2020-09-13] MEDS: Atorvastatin Calcium 40 MG TAB PO SCH (20:26)
[2020-09-13] MEDS: Acetaminophen 325 MG TAB PO PRN (21:21)
[2020-09-14 05:16] LABS: #Eosinphils 0.4 thou/uL (0.0-0.7); #Lymphocytes 1.4 thou/uL (1.20-3.40); #Monocytes 0.8 thou/uL (0.11-0.59); #Neutrophils 2.7 thou/uL (1.40-6.50); %Basophils 0.9 % (0.0-1.0); %Eosinophils 6.8 % (0.0-10.0); %Lymphocytes 26.4 % (21.0-51.0); %Monocytes 14.6 % (0.0-10.0); %Neutrophils 51.3 % (42.0-75.0); Mean Corpuscular HGB CONC 32.2 g/dL (32.0-36.0); Mean Corpuscular Volume 80.9 fL (78.0-98.0); Platelet Count 228 thou/uL (130-400); RBC Distribution Width 15.4 % (11.5-14.5); Red Blood Cell (RBC) Count 4.61 mill/uL (4.20-5.40); White Blood Cell (WBC) Count 5.2 thou/uL (4.8-10.8)
[2020-09-14 05:17] LABS: INR-International Normal Ratio 2.8; Prothrombin Time 29.7 sec (12.0-14.7)
[2020-09-14 05:38] LABS: Anion Gap 11 mmol/L (10-20); BUN (Urea Nitrogen) 10 mg/dL (9.8-20.1); Calc. Creatinine Clearance 116 mL/min (70-130); Calcium 9.7 mg/dL (7.8-10.44); Carbon Dioxide 26 mmol/L (23-31); Chloride 109 mmol/L (98-107); Estimated GFR-MDRD 86; Glucose 97 mg/dL (80-115); Sodium 142 mmol/L (136-145)
[2020-09-14] MEDS: Levothyroxine Sodium 75 MCG TAB PO SCH (06:47)
[2020-09-14 07:40] VITALS: BP 137/55; TEMP 98.1
[2020-09-14] MEDS: PARoxetine CR 12.5 MG TAB PO SCH (09:44)
[2020-09-14] MEDS: Acetaminophen 325 MG TAB PO PRN (09:53)
--- NOTE | 2020-09-14 11:47 | PDOC.NEUPN ---
- Subjective Encounter Date: 09/14/20 Subjective: Patient feels much better now and the left facial weakness is almost resolved this morning. MRI of the brain was negative for acute intracranial pathology. - Objective Vital Signs & Weight: Vital Signs (12 hours) Temp Pulse Resp BP Pulse Ox 09/14/20 07:38 98.1 F 69 16 137/55 L 96 09/14/20 03:22 97.7 F 71 20 144/69 H 92 L Weight Weight 210 lb 12.8 oz I&O: 09/13/20 09/14/20 09/15/20 07:59 06:59 06:59 Intake Total 240 Output Total Balance 240 Result Diagrams: 09/14/20 04:52 09/14/20 04:52 Additional Labs: Accuchecks 09/14/20 08:32 POC Glucose 92 Radiology Reviewed by me: Yes EKG Reviewed by me: Yes ROS - Review of Systems Constitutional: denies: fever, chills, sweats, weakness, malaise, other Eyes: denies: pain, vision change, conjunctivae inflammation, eyelid inflammation, redness, other ENT: denies: ear pain, ear discharge, nose pain, nose discharge, nose congestion, mouth pain, mouth swelling, throat pain, throat swelling, other Respiratory: denies: cough, dry, shortness of breath, hemoptysis, SOB with excertion, pleuritic pain, sputum, wheezing, other Gastrointestinal: denies: nausea, vomiting, abdominal pain, diarrhea, constipation, melena, hematochezia, other Genitourinary: denies: dysuria, frequency, incontinence, hematuria, retention, other Musculoskeletal: denies: neck pain, shoulder pain, arm pain, back pain, hand pain, leg pain, foot pain, other All Systems: All other systems reviewed; all pertinent +/- noted in HPI/Subj - Medication Medications: Active Medications Generic Name Dose Route Start Last Admin Trade Name Freq PRN Reason Stop Dose Admin Acetaminophen 650 mg 09/13/20 20:58 09/14/20 09:53 Acetaminophen 325 Mg Tab PO 650 mg Q4H PRN Administration Headache/Fever or Pain Atorvastatin Calcium 80 mg 09/12/20 21:00 09/13/20 20:26 Atorvastatin Calcium 40 Mg Tab PO 80 mg HS COLTON Administration Levothyroxine Sodium 75 mcg 09/13/20 06:00 09/14/20 06:47 Levothyroxine Sodium 75 Mcg Tab PO 75 mcg 0600 COLTON Administration Paroxetine HCl 12.5 mg 09/13/20 09:00 09/14/20 09:44 Paroxetine Cr 12.5 Mg Tab PO 12.5 mg DAILY COLTON Administration Sodium Chloride 10 ml 09/12/20 16:42 09/13/20 20:27 Flush - Normal Saline 10 Ml Syringe IVF 10 ml PRN PRN Administration Saline Flush Warfarin Sodium 7.5 mg 09/13/20 17:00 09/13/20 16:19 Warfarin Sodium 7.5 Mg Tab PO 7.5 mg 1700 COLTON Administration - Exam General Appearance: awake alert Eye: PERRL ENT: normocephalic atraumatic Neck: supple Respiratory: CTAB Cardiovascular: RRR Gastrointestinal: soft Extremities: no cyanosis Neurological: no focal deficits, no new deficit Musculoskeletal: normal tone, normal strength, no muscle wasting PSYCH: normal affect, normal behavior, A&O x 3, oriented to person, oriented to place, oriented to time Results - Labs Result Diagrams: 09/14/20 04:52 09/14/20 04:52 Lab results: WBC 5.2 thou/uL (4.8-10.8) 09/14/20 04:52 Hgb 12.0 g/dL (12.0-16.0) 09/14/20 04:52 Hct 37.3 % (36.0-47.0) 09/14/20 04:52 MCV 80.9 fL (78.0-98.0) 09/14/20 04:52 Plt Count 228 thou/uL (130-400) 09/14/20 04:52 Neutrophils % 51.3 % (42.0-75.0) 09/14/20 04:52 Sodium 142 mmol/L (136-145) 09/14/20 04:52 Potassium 4.0 mmol/L (3.5-5.1) 09/14/20 04:52 Chloride 109 mmol/L (98-107) H 09/14/20 04:52 Carbon Dioxide 26 mmol/L (23-31) 09/14/20 04:52 BUN 10 mg/dL (9.8-20.1) 09/14/20 04:52 Creatinine 0.68 mg/dL (0.6-1.1) 09/14/20 04:52 Glucose 97 mg/dL (80-115) 09/14/20 04:52 Calcium 9.7 mg/dL (7.8-10.44) 09/14/20 04:52 Total Bilirubin 0.5 mg/dL (0.2-1.2) 09/12/20 12:40 AST 19 U/L (5-34) 09/12/20 12:40 ALT 16 U/L (8-55) 09/12/20 12:40 Alkaline Phosphatase 75 U/L (40-110) 09/12/20 12:40 Creatine Kinase 52 U/L (29-168) 09/12/20 12:40 Troponin I Less than 0.010 ng/mL (< 0.028) 09/12/20 12:40 Serum Total Protein 7.0 g/dL (6.0-8.3) 09/12/20 12:40 Albumin 4.2 g/dL (3.4-4.8) 09/12/20 12:40 - Radiology Interpretation MRI - head Status: image reviewed by me, report reviewed by me Additional Comment: MRI of the head reviewed which was negative for acute intracranial pathology. PN A/P (1) TIA (transient ischemic attack) Code(s): G45.9 - TRANSIENT CEREBRAL ISCHEMIC ATTACK, UNSPECIFIED Status: Acute (2) Recurrent deep vein thrombosis (DVT) Code(s): I82.409 - ACUTE EMBOLISM AND THOMBOS UNSP DEEP VN UNSP LOWER EXTREMITY Status: Acute (3) Hypertension Code(s): I10 - ESSENTIAL (PRIMARY) HYPERTENSION Status: Acute (4) Hyperlipidemia Code(s): E78.5 - HYPERLIPIDEMIA, UNSPECIFIED Status: Acute (5) Hypothyroidism Code(s): E03.9 - HYPOTHYROIDISM, UNSPECIFIED Status: Acute (6) Meniere disease Code(s): H81.09 - MENIERE'S DISEASE, UNSPECIFIED EAR Status: Acute - Plan Daily Plan: plan discussed w/ family, PT/OT, speech therapy, out of bed/ambulate Mrs. Randhawa is a 69-year-old female with history significant for hypertension, hypothyroidism , recurrent DVTs on Coumadin presented with an episode of left facial weakness and confusion which which is now resolved and patient is almost back to her baseline. Most likely transient ischemic attack. MRI of the brain reviewed which was negative for acute intracranial pathology. EEG reviewed which was negative for seizure activity. 2D echo cardiogram showed left ventricle ejection fraction 55 to 60%. No thrombus or PFO. Continue warfarin for hypercoagulable state and for secondary stroke prevention. Continue high intensity statin for secondary stroke prevention. Strict control of blood pressure and blood glucose. Neurochecks every 4 hours. Continue home medications. PT/OT/speech. Continue medical management per primary team. Plan discussed in detail with the patient, at bedside and the nursing staff
--- NOTE | 2020-09-14 12:17 | PDOC.DS.DS ---
Provider - Provider Date of Admission: 09/12/20 14:11 Date of Discharge: 09/14/20 Admitting Provider: Stevenson Austin MD Consultations: Neurology Primary Care Physician: Brian Ni MD Course - Hospital Course Hospital Course: Discharge diagnosis: 1. Transient ischemic attack Hospital course: Patient is a pleasant 69-year-old lady who was admitted on September 12, 2020 for left facial numbness associated with slurred speech that lasted approximately 2 hours. She was seen by neurology service. CT angiogram of [place] and neck was done and there were no hemodynamically significant stenosis of internal carotid arteries. [place] was intact. MRI of the brain did not show any evidence for restricted diffusion to suggest recent infarction. She had a stable sellar mass. EEG was normal. 2D echocardiogram showed left ventricular ejection fraction of 60 to 65%. No change was made to patient's preadmission home medications and she is being discharged home in a stable condition. Discharge destination: Home. - Labs Lab Results: 09/14/20 04:52 09/14/20 04:52 Abnormal Lab Results - Last 48 hrs 09/12/20 12:40: Calcium 10.5 H 09/13/20 04:47: Chloride 109 H 09/13/20 04:47: MCH 25.7 L, RDW 15.8 H, Monocytes % 12.5 H, Monocytes # 0.6 H 09/13/20 04:47: PT 27.3 H 09/14/20 04:52: Chloride 109 H 09/14/20 04:52: MCH 26.0 L, RDW 15.4 H, Monocytes % 14.6 H, Monocytes # 0.8 H 09/14/20 04:52: PT 29.7 H - Physical Exam Vitals: Vital Signs (12 hours) Temp Pulse Resp BP Pulse Ox 09/14/20 07:38 98.1 F 69 16 137/55 L 96 09/14/20 03:22 97.7 F 71 20 144/69 H 92 L Weight Weight 210 lb 12.8 oz Physical Exam: The patient was seen and examined on the day of discharge. She denies any chest pain or shortness of breath. Vital signs are stable. S1 and S2 are heard, regular. Lungs are clear to auscultation bilaterally. Plan - Discharge Medications Home Medications: Medication Instructions Recorded Confirmed Type Atorvastatin Calcium [Lipitor] 10 mg PO HS 10/19/18 09/12/20 History Cholecalciferol (Vitamin D3) 3,000 unit PO DAILY 10/19/18 09/12/20 History [Vitamin D3] Furosemide [Lasix] 40 mg PO DAILY 10/19/18 09/12/20 History Levothyroxine Sodium [Synthroid] 75 mcg PO DAILY 10/19/18 09/12/20 History Losartan Potassium 100 mg PO DAILY 10/19/18 09/12/20 History PARoxetine HCl [Paroxetine ER] 12.5 mg PO DAILY 10/19/18 09/12/20 History Warfarin Sodium [Coumadin] 7.5 mg PO HS 10/19/18 09/12/20 History hydrALAZINE HCl [Hydralazine HCl] 50 mg PO TID 10/19/18 09/12/20 History Allergies: No Known Allergies Allergy (Unverified 10/19/18 15:58) - Discharge Instructions Activity:: Activity as Tolerated Nourishment:: Heart Healthy Diet - Follow up Plan Referrals: CIRA LOVE [Family Provider] - 3 Days Brian Ni MD [Primary Care Provider] - 7 Days Disposition: HOME Quality - Care Measures CORE MEASURES:: Stroke/TIA - Stroke/TIA Did you prescribe antithrombotic therapy?: Yes Specify reason for no DC anticoagulant: Treatment not indicated Did you prescribe a statin medication?: Yes
--- NOTE | 2020-09-15 16:08 | CT ---
"PRELIMINARY REPORT" CTA Angio Head W WO Con History: Stroke. Left-sided facial droop Comparison: CTA head and neck October 2019 Findings: CT angiogram of the head and neck performed after the intravenous administration of contras t. 3-D rendering provided. Lung apices are clear. Moderate degenerative changes lower cervical spine. No acute fracture. Mandible is intact. Normal location of the tip joints. The vertebral arteries are patent. Right vertebral artery is dominant. Right common carotid artery is patent. Slight internal carotid artery is patent. No hemodynamically s ignificant stenosis per NASCET criteria. Left common carotid artery is patent. The left internal carotid artery is patent. No hemodynamically significant stenosis per NASCET criteria. No oropharyngeal mass. [place] is patent without stenosis, thrombosis nor aneurysm formation. Impression: 1. Intact [place] without stenosis, thrombosis or aneurysm formation. 2. No hemodynamically significant stenosis internal carotid arteries per NASCET criteria. Transcribed Date/Time: 09/15/2020 4:08 PM
== END 2020-09-14 11:39 | disposition home or self-care (01) ==
LOC: ERS 12:31 → 2SE 14:11
PROVIDERS: ADMIT Student in an Organized Health Care Education/Training Program; ATTEND Internal Medicine
DX: G45.9 Transient cerebral ischemic attack, unspecified (principal); I10 Essential (primary) hypertension; E78.5 Hyperlipidemia, unspecified; E03.9 Hypothyroidism, unspecified; F41.9 Anxiety disorder, unspecified; F32.9 Major depressive disorder, single episode, unspecified; G93.0 Cerebral cysts; H81.09 Meniere's disease, unspecified ear; Z86.718 Personal history of other venous thrombosis and embolism; Z79.01 Long term (current) use of anticoagulants; Z79.899 Other long term (current) drug therapy
CPT/HCPCS: 70450; 70496; 70498; 70551; 80048 ×2; 80061; 82550; 82962; 83036; 83735; 84484; 85025 ×2; 85610 ×3; 85730; 93005; 93306; 95712; 95816; 95819; 95957; 99285; G0378 ×4; 36415; 36416; 80053; 84443; Q9967

== ENCOUNTER 2021-08-31 13:46 | Outpatient (CLI) | payer MEDICARE | END 2021-08-31 13:47 | disposition home or self-care (01) | LOC: TBSIIMAG 13:46 | PROVIDERS: ATTEND Neurological Surgery | DX: D49.7 Neoplasm of unspecified behavior of endocrine glands and other parts of nervous system (principal); I67.82 Cerebral ischemia | CPT/HCPCS: 70553; 82565; A9579 ==

== ENCOUNTER 2021-09-09 12:41 | Outpatient (CLI) | payer MEDICARE | END 2021-09-09 12:42 | disposition home or self-care (01) | LOC: TBSIIMAG 12:41 | PROVIDERS: ATTEND Neurological Surgery | DX: S12.600D Unspecified displaced fracture of seventh cervical vertebra, subsequent encounter for fracture with routine healing (principal); M47.812 Spondylosis without myelopathy or radiculopathy, cervical region | CPT/HCPCS: 72040 ==

== ENCOUNTER 2021-09-11 11:55 | Outpatient (CLI) | payer MEDICARE | END 2021-09-11 11:56 | disposition home or self-care (01) | LOC: BICMAMMO 11:55 | PROVIDERS: ATTEND Physician Assistant | DX: Z12.31 Encounter for screening mammogram for malignant neoplasm of breast (principal) | CPT/HCPCS: 77063; 77067 ==

== ENCOUNTER 2021-10-19 13:36 | Outpatient (CLI) | payer MEDICARE | END 2021-10-19 13:37 | disposition home or self-care (01) | LOC: TBSIIMAG 13:36 | PROVIDERS: ATTEND Neurological Surgery | DX: S12.9XXA Fracture of neck, unspecified, initial encounter (principal); M47.812 Spondylosis without myelopathy or radiculopathy, cervical region | CPT/HCPCS: 72040 ==

== ENCOUNTER 2021-12-07 11:19 | Outpatient (CLI) | payer MEDICARE | END 2021-12-07 11:20 | disposition home or self-care (01) | LOC: TBSIIMAG 11:19 | PROVIDERS: ATTEND Neurological Surgery | DX: S12.9XXD Fracture of neck, unspecified, subsequent encounter (principal); M47.812 Spondylosis without myelopathy or radiculopathy, cervical region | CPT/HCPCS: 72040 ==

== ENCOUNTER 2023-08-24 08:55 | Outpatient (CLI) | payer MEDICARE ==
[2023-08-24] MEDS ORDERED: Iopamidol 370 76% 100 ML VIAL ONE (11:11)
== END 2023-08-24 08:56 | disposition home or self-care (01) ==
LOC: CT 08:55
PROVIDERS: ATTEND Neurological Surgery
DX: D35.2 Benign neoplasm of pituitary gland (principal); G93.89 Other specified disorders of brain
CPT/HCPCS: 70460; Q9967